=== PATIENT | female | born 1990 | race African-American/Black ===

== ENCOUNTER 2017-03-02 17:39 | Inpatient (IN) ==
[2017-03-02] MEDS ORDERED: LACTATED RINGERS 1,000 ML IV ONE ×2 (18:04→19:19)
[2017-03-02] MEDS ORDERED: BUTORPHANOL 1 MG/ML VIAL IV PRN (18:05)
[2017-03-02] MEDS ORDERED: ONDANSETRON 4 MG/2 ML VIAL IM PRN (18:06)
[2017-03-02] MEDS ORDERED: ONDANSETRON 4 MG/2 ML VIAL IV ONE (18:28)
[2017-03-02] MEDS ORDERED: BUTORPHANOL 2 MG/ML VIAL IV PRN (19:15)
[2017-03-02] MEDS ORDERED: diphenhydrAMINE 50 MG/1 ML VIAL IV PRN (19:19)
[2017-03-02] MEDS ORDERED: LACTATED RINGERS 250 ML IV PRN (19:19)
[2017-03-02] MEDS ORDERED: CITRIC ACID/SODIUM CITRATE 30 ML UDCUP PO ONE (19:19)
[2017-03-02] MEDS ORDERED: hydrOXYzine HCL 25 MG/1 ML VIAL IM PRN (19:19)
[2017-03-02] MEDS ORDERED: PROMETHAZINE 25 MG/1 ML VIAL IM ONE (19:19)
[2017-03-02] MEDS ORDERED: FAMOTIDINE 20 MG/2 ML VIAL IV ONE (19:19)
[2017-03-02] MEDS ORDERED: ePHEDrine 50 MG/ML AMP IV PRN (19:19)
[2017-03-02] MEDS ORDERED: fentaNYL 2 MCG/ROPIV 0.2% EPID 150 ML EPIDURAL SCH (19:30)
[2017-03-02] MEDS ORDERED: LACTATED RINGERS 1,000 ML IV SCH (19:30)
[2017-03-02] MEDS: LACTATED RINGERS 1,000 ML IV SCH ×2 (19:31→21:46)
[2017-03-02 19:57] LABS: Basophils % 0.1 % (0.0-0.8); Eosinophils # 0.3 10*3/uL (0.0-0.87); Eosinophils % 4.1 % (0.00-10.9); Hematocrit 31.5 VOL% (35.7-47.0); Hemoglobin 10.2 GM/DL (12.0-16.0); Immature Granulocytes % 0.5 %; Immature Granulocytes Absolute 0.04 #; Lymphocytes # 2.2 10*3/uL (1.4-4.0); Lymphocytes % 28.6 % (21.3-54.2); Mean Corpuscular HGB Conc 32.4 GM/DL (32-36); Mean Corpuscular Hemoglobin 28 PG (27-34); Mean Corpuscular Volume 85.8 FL (87-102); Mean Platelet Volume 10.6 FL (9.6-12.0); Monocytes # 0.8 10*3/uL (0.11-0.8); Monocytes % 9.8 % (1.7-12.7); Neutrophils # 4.5 10*3/uL (1.4-7.4); Neutrophils % 56.9 % (38.7-73.9); Platelet Count 246 T/CUMM (130-400); Red Blood Count 3.67 MC/CUMM (3.8-5.5); White Blood Count 7.8 T/CUMM (4-12)
[2017-03-02 20:16] LABS: Albumin 2.7 G/DL (3.4-5.0); Bilirubin,Total 0.5 MG/DL (0.2-1.0); Calcium 8.4 MG/DL (8.5-10.1); Total Protein 6.1 G/DL (6.4-8.3)
[2017-03-02 20:17] LABS: Osmolality,Calculated 274.4 MOS/KG (273-304); Potassium 4.4 MMOL/L (3.5-5.1)
[2017-03-02] MEDS ORDERED: OXYTOCIN/LR 20 UNIT/1,000 ML BAG IV ONE (20:57)
[2017-03-02] MEDS ORDERED: OXYTOCIN/LR 20 UNIT/1,000 ML BAG IV SCH (21:00)
[2017-03-02 22:33] LABS: Apearance,Urine CLEAR (Clear); Bacteria,Urine Occasional /HPF (Few); Bilirubin,Urine Negative (Negative); Blood, Urine Negative (Negative); Glucose,Urine (UA) Negative (Negative); Hyaline Casts,Urine 1 /LPF (0-3); Ketones,Urine Negative (Negative); Mucus,Urine Occasional /LPF (Occasional); Nitrite,Urine Negative (Negative); Protein,Urine Negative; RBC,Urine 2 /HPF (0-4); Squamous Epithelial Cell,Urine Occasional /HPF (0-10); Urine Color Yellow (Yellow); WBC,Urine 3 /HPF (0-6)
[2017-03-03] MEDS ORDERED: OXYTOCIN/LR 0 UNIT/0 ML BAG IV ONE (01:46)
[2017-03-03] MEDS ORDERED: OXYTOCIN 10 UNIT/ML VIAL ONE (01:47)
[2017-03-03] MEDS ORDERED: miSOPROStol 200 MCG TABLET ONE (01:47)
[2017-03-03] MEDS ORDERED: METHYLERGONOVINE 0.2 MG/1 ML AMP ONE (01:47)
[2017-03-03] MEDS ORDERED: CARBOPROST TROMETHAMINE 250 MCG/ML AMP IM ONE (01:48)
[2017-03-03] MEDS ORDERED: BISACODYL 10 MG SUPP RECTAL PRN (02:24)
[2017-03-03] MEDS ORDERED: HYDROCORTISONE 2.5% RECTAL CREAM 30 GM TUBE TOP PRN (02:24)
[2017-03-03] MEDS ORDERED: BENZOCAINE 20%/MENTHOL 0.5% SPRAY 56 GM CAN TOP PRN (02:24)
[2017-03-03] MEDS ORDERED: MEASLES/MUMPS/RUBELLA VACCINE 0.5 ML VIAL SUBCUT ONE (02:24)
[2017-03-03] MEDS ORDERED: ACETAMINOPHEN 325 MG TABLET PO PRN (02:24)
[2017-03-03] MEDS ORDERED: WITCH HAZEL PADS 100/JAR TOP PRN (02:24)
[2017-03-03] MEDS ORDERED: OXYTOCIN/LR 20 UNIT/1,000 ML BAG IV ONE (02:24)
[2017-03-03] MEDS ORDERED: LANOLIN 50% CREAM 0.3 OZ TUBE TOP PRN (02:24)
[2017-03-03] MEDS ORDERED: ONDANSETRON 4 MG/2 ML VIAL IV PRN (02:24)
[2017-03-03] MEDS ORDERED: DIPH/TET/ACEL PERT BOOSTER VACCINE 0.5 ML VIAL IM ONE (02:24)
[2017-03-03] MEDS ORDERED: RHO(D) IMMUNE GLOBULIN 300 MCG SYRINGE IM ONE (02:24)
[2017-03-03] MEDS: IBUPROFEN 800 MG TABLET PO PRN ×2 (04:58→17:34)
[2017-03-03] MEDS: oxyCODONE/ACETAMINOPHEN 5-325 MG TABLET PO PRN ×2 (05:00→17:36)
[2017-03-03 08:10] LABS: Basophils % 0.1 % (0.0-0.8); Eosinophils # 0.1 10*3/uL (0.0-0.87); Eosinophils % 0.9 % (0.00-10.9); Hematocrit 28.5 VOL% (35.7-47.0); Hemoglobin 9.5 GM/DL (12.0-16.0); Immature Granulocytes % 0.4 %; Immature Granulocytes Absolute 0.04 #; Lymphocytes # 1.5 10*3/uL (1.4-4.0); Lymphocytes % 13.9 % (21.3-54.2); Mean Corpuscular HGB Conc 33.3 GM/DL (32-36); Mean Corpuscular Hemoglobin 28 PG (27-34); Mean Corpuscular Volume 84.3 FL (87-102); Mean Platelet Volume 10.8 FL (9.6-12.0); Monocytes # 0.8 10*3/uL (0.11-0.8); Monocytes % 7.5 % (1.7-12.7); Neutrophils # 8.2 10*3/uL (1.4-7.4); Neutrophils % 77.2 % (38.7-73.9); Platelet Count 216 T/CUMM (130-400); Red Blood Count 3.38 MC/CUMM (3.8-5.5); Red Cell Distribution Width 13.9 % (9.3-17.3); White Blood Count 10.6 T/CUMM (4-12)
[2017-03-03] MEDS: DOCUSATE SODIUM 100 MG CAPSULE PO SCH ×2 (09:25→21:14)
[2017-03-04] MEDS: IBUPROFEN 800 MG TABLET PO PRN ×3 (04:47→20:06)
[2017-03-04] MEDS: oxyCODONE/ACETAMINOPHEN 5-325 MG TABLET PO PRN ×3 (04:47→20:06)
[2017-03-04 06:39] LABS: Basophils % 0.1 % (0.0-0.8); Eosinophils # 0.3 10*3/uL (0.0-0.87); Eosinophils % 3.9 % (0.00-10.9); Hematocrit 27.7 VOL% (35.7-47.0); Hemoglobin 8.9 GM/DL (12.0-16.0); Immature Granulocytes % 0.7 %; Immature Granulocytes Absolute 0.05 #; Lymphocytes # 2.3 10*3/uL (1.4-4.0); Lymphocytes % 30.1 % (21.3-54.2); Mean Corpuscular HGB Conc 32.1 GM/DL (32-36); Mean Corpuscular Hemoglobin 28 PG (27-34); Mean Corpuscular Volume 87.1 FL (87-102); Mean Platelet Volume 10.7 FL (9.6-12.0); Monocytes # 0.6 10*3/uL (0.11-0.8); Neutrophils # 4.3 10*3/uL (1.4-7.4); Neutrophils % 57.2 % (38.7-73.9); Platelet Count 214 T/CUMM (130-400); Red Blood Count 3.18 MC/CUMM (3.8-5.5); Red Cell Distribution Width 13.9 % (9.3-17.3); White Blood Count 7.5 T/CUMM (4-12)
[2017-03-04] MEDS: DOCUSATE SODIUM 100 MG CAPSULE PO SCH ×2 (10:12→20:06)
[2017-03-05 08:15] VITALS: BP 111/60
[2017-03-05] MEDS: IBUPROFEN 800 MG TABLET PO PRN (09:18)
[2017-03-05] MEDS: DOCUSATE SODIUM 100 MG CAPSULE PO SCH (09:18)
== END 2017-03-05 16:10 | disposition home or self-care (01) | DRG 560 ==
LOC: N.LDOUT 17:39 → N.LD 17:47 → N.OB 03-03 04:38
PROVIDERS: ADMIT Obstetrics & Gynecology; ATTEND Obstetrics & Gynecology